=== PATIENT | female | born 1975 | race Caucasian/White ===

== ENCOUNTER → 2017-06-16 | Outpatient (CLI) | payer BC ==
[~2017-06-16] MED LIST: ALBU1AER9 INH; AMPH20CA3 PO; BIOTCAP2 PO; CHOL100010 PO; CRAN250T PO; FLAX1CAP11 PO; FOLI1TAB7 PO; GABA-113 PO; IBUP-1277 PO; LACTCAP3 PO; MULT-506 PO; OMEG10007 PO; OMEP20CA9 PO; ULT50HP PO; XNX25 PO
== END | disposition home or self-care (01) ==
LOC: C.PAPS 08:12
PROVIDERS: ATTEND Physician Assistant
DX: Z01.419 Encounter for gynecological examination (general) (routine) without abnormal findings (principal)

== ENCOUNTER → 2017-07-11 | Outpatient (CLI) | payer BC ==
[2017-07-11 10:35] LABS: HEMATOCRIT 38.9 % (37-47); MEAN CELL VOLUME 79.1 fL (80-100); MEAN CORPUSCULAR HEMOGLOBIN 24.4 pg (25-34); MEAN CORPUSCULAR HGB CONC 30.8 g/dl (32-36); MEAN PLATELET VOLUME 10.2 fL (7.4-10.4); PLATELET COUNT 272 K/uL (130-400); RED BLOOD COUNT 4.92 M/uL (4.2-5.4); WHITE BLOOD COUNT 7.52 K/uL (4.8-10.8)
[2017-07-11 11:00] LABS: ALT/SGPT 115 U/L (12-78); AST/SGOT 65 U/L (15-37); BLOOD UREA NITROGEN 9 mg/dl (7-18); BUN/CREATININE RATIO 13.7 (10-20); CALCIUM 8.9 mg/dl (8.5-10.1); CARBON DIOXIDE 29 mmol/L (21-32); CHLORIDE 103 mmol/L (98-107); CHOLESTEROL 186 mg/dl (0-200); CREATININE 0.68 mg/dl (0.60-1.20); GLUCOSE 129 mg/dl (70-99); MAGNESIUM 1.9 mg/dl (1.8-2.4); SODIUM 137 mmol/L (136-145); TRIGLYCERIDES 127 mg/dl (0-150); VERY LOW DENSITY LIPOPROT CALC 25 mg/dl
[2017-07-11 11:04] LABS: ALB/GLOB RATIO 0.8 (0.9-2); ALKALINE PHOSPHATASE 104 U/L (45-117); CHOLESTEROL/HDL RATIO 4.7; FERRITIN 38.9 ng/ml (8.0-388.0); HDL CHOLESTEROL 40 mg/dl; LDL CHOLESTEROL CALCULATED 121 mg/dl
[2017-07-11 11:14] LABS: ESTIMATED AVERAGE GLUCOSE 160 mg/dl; HA1C FLAG Normal (Normal)
[2017-07-11 13:24] LABS: PREG INTERNAL NEGATIVE QC NEG CLEAR BACKGROUND; PREG INTERNAL POSITIVE QC POS CONTROL LINE
== END | disposition home or self-care (01) ==
LOC: C.LABBC 08:50
PROVIDERS: ATTEND Physician Assistant
DX: E88.81 Metabolic syndrome and other insulin resistance (principal); I10 Essential (primary) hypertension; R53.83 Other fatigue; R73.09 Other abnormal glucose; N92.0 Excessive and frequent menstruation with regular cycle

== ENCOUNTER → 2017-11-08 | Outpatient (CLI) | payer OTHER ==
[~2017-11-08] MED LIST changes: -FOLI1TAB7 PO; +FOLI1TAB8 PO
--- NOTE | 2017-11-08 12:22 | DIAGNOSTIC IMAGING REPORT ---
CHEST 2 VIEWS ROUTINE CLINICAL HISTORY: J11.1 [id number] NOT FEELING WELL X4 DAYS COMPARISON STUDY: 12/31/2014 FINDINGS: The cardiac and mediastinal contours are normal. There is no evidence of focal pulmonary consolidation. There is no evidence of failure. No pleural effusions are visualized.[ IMPRESSION: No active disease in the chest. Electronically signed by: Owen Wood M.D. 11/08/2017 12:21 PM Dictated Date/Time: 11/08/2017 12:20 PM
== END | disposition home or self-care (01) ==
LOC: C.RADBC 12:04
PROVIDERS: ATTEND Nurse Practitioner Family
DX: J11.1 Influenza due to unidentified influenza virus with other respiratory manifestations (principal)